=== PATIENT | female | born 1965 | race Caucasian/White ===

== ENCOUNTER → 2024-07-12 09:57 | Outpatient (REF) | payer BC, SELFPAY | LOC: HWWDC 09:57 | PROVIDERS: ATTENDING PHYSICIAN Family Medicine | DX: Z12.31 Encounter for screening mammogram for malignant neoplasm of breast (principal) | CPT/HCPCS: 77063; 77067 ==

== ENCOUNTER 2024-09-05 12:17 | Emergency (ER) | payer BC, SELFPAY ==
[2024-09-05 12:20] VITALS: BP 122/67
[2024-09-05] MEDS: MOTRIN 400 MG PO (13:15)
--- NOTE | 2024-09-05 14:47 | ED.GENMED ---
History of Present Illness
General
Chief Complaint: Musculo-Skeletal Complaint
Source: patient
Exam Limitations: none
Time Seen by Provider: 09/05/24 12:31
Nursing documentation reviewed up to this point in time: agreed with
History of Present Illness
History of Present Illness:
59-year-old female with no reported chronic medical issues presents for evaluation of left ankle injury. Patient missed a step walking out of a restaurant and suffered inversion injury of the left ankle. She denies any subsequent fall or other
injuries but says she heard a snap in her ankle and has had pain, swelling and weightbearing difficulty since. Denies any knee pain. Denies any other complaints.
Past History
Past History
ED Past Medical History: Hypercholesterolemia
ED Past Surgical History: None
Social History
Tobacco: Non-smoker
Personal:
Living: with family
Review of Systems
Review of Systems
All Other Systems: ROS reviewed and negative except as documented in HPI and ROS
Musculoskeletal: Reports other (Ankle injury)
Phy Exam
Physical Exam
Physical Exam:
General: Well appearing and non-toxic
HEENT: protecting airway
Neck: appears supple
CV: No evidence of cyanosis
Resp: No accessory muscle use
Abd: Non-distended
Extremities: Patient has swelling and bruising along the lateral malleolus on her left ankle and significant tenderness along the inferior aspect of the lateral malleolus; no tenderness of the medial malleolus on the left, no tenderness in the
midfoot, calcaneus, fifth metatarsal on the left; she has a strong left DP and PT pulse; no tenderness of the left knee and full range of motion; right lower extremity atraumatic
Neuro: Alert
Psych: Normal affect
Skin: Intact
Scores
Heart Failure Risk
Heart Failure Risk Score: Not Applicable
Heart Score for Chest Pain Patients
STEMI patient?: Not applicable
Withdrawal Assessment of Alcohol
Withdrawal Assessment Completed?: Not applicable
Course
Orders/Labs/Results
Orders:
Orders
09/05/24 12:18
Ankle, left 3 view CR [CR Ankle - Left Min 3 Views ] Urgent
Comment:
Reason For Exam: fall at a restaurant
09/05/24 13:09
Crutches-Treatment ONCE
Ortho Boot Left- Treatment ONCE
Short or tall?: Short
Ibuprofen [Motrin] 400 mg PO NOW STA
Vital Signs
Initial and Last Documented VS:
Initial Vital Signs
Temp Pulse Resp BP Pulse Ox
36.6 C 76 18 122/67 100
09/05/24 12:20 09/05/24 12:20 09/05/24 12:20 09/05/24 12:20 09/05/24 12:20
Last Documented Vital Signs
Temp Pulse Resp BP Pulse Ox
36.6 C 76 18 122/67 100
09/05/24 12:20 09/05/24 12:20 09/05/24 12:20 09/05/24 12:20 09/05/24 12:20
MDM/Problems Addressed
Differential Diagnosis Includes:
Ankle sprain, ankle fracture, dislocation less likely
MDM/Problems Addressed:
59-year-old female presents for evaluation of left ankle injury. No other injuries. Neurovascular intact. Pain and tenderness along the lateral malleolus. X-ray reviewed shows distal fibular fracture. No knee tenderness or pain to suggest more
proximal injury. Placed in Ortho boot, weight-bear as tolerated, crutches as needed. Referred to Ortho for follow-up. Discussed RICE, Tylenol Motrin for pain control. All questions answered.
*Radiology
Radiology exam reviewed: preliminary read by ED provider and radiology read reviewed
*Pulse Oximetry
Patient hypoxic: no
*Critical Care Note
Total Time (30-74mins, 75-104mins- exclusive of procedures): Not Applicable
Data Reviewed
Source: patient
ED Attending Note
-
Portions of this chart may have been created with voice recognition software.� Occasional wrong word or��sound alike� substitutions may have occurred due to the inherent limitations of voice recognition software.
Discharge Plan
Departure
Patient Disposition: Home (Routine Discharge)
Date of Disposition: 09/05/24
Time of Disposition: 13:20
Patient with high blood pressure during this ER visit?: No
Discharge Problem:
Fracture of distal end of fibula
Instructions: Ankle Fracture (DC)
Prescriptions:
No Action
ondansetron 4 MG tablet,disintegrating
4 mg PO BIDPRN PRN (Reason: nausea) Qty: 14 0RF
Referrals:
Daren Alberts MD [Family Provider] -
Nadir Fernandez DPM [Active] - Follow up in 5-7 days
Activity Restrictions/Additional Instructions:
Thank you for visiting the Emergency Department at [facility].
1. Please schedule a follow up appointment as directed. Call first thing tomorrow morning to make an appointment.
2. If indicated, please take your medications as instructed and indicated on discharge paperwork.
3. If any of your symptoms do not improve, or persist, or become more severe within 6-12 hours, please return to the emergency department for further care.
4. Please return to the emergency department if you develop a headache, neck pain/stiffness, fever greater than 100.4F, chest pain, shortness of breath, persistent nausea, vomiting, slurred speech, difficulty walking, numbness/tingling, weakness,
signs of infection or any other symptoms that are worrisome to you.
Please call [phone] if you have any questions.
Interventions
Interventions:
*ED COVID-19 Vaccine History Last Done: 09/05/24 12:20
*Nursing Disposition Last Done: 09/05/24 13:47
ED-Musculoskeletal Assessment Last Done: 09/05/24 13:28
Discharge Date and Time
Discharge Date/Time: 09/05/24 13:48
Print Language: GAMBIAN
== END 2024-09-05 13:48 | disposition home or self-care (01) ==
LOC: EMR 12:17
PROVIDERS: EMERGENCY PHYSICIAN Emergency Medicine; FAMILY PHYSICIAN Family Medicine
DX: S82.832A Other fracture of upper and lower end of left fibula, initial encounter for closed fracture (principal); S90.02XA Contusion of left ankle, initial encounter; W17.89XA Other fall from one level to another, initial encounter; Y93.01 Activity, walking, marching and hiking; Y92.511 Restaurant or cafe as the place of occurrence of the external cause; E78.00 Pure hypercholesterolemia, unspecified
CPT/HCPCS: 99283; 29515; 73610

== ENCOUNTER → 2024-09-13 16:16 | Outpatient (REF) | payer BC, SELFPAY | LOC: MRI 3T 16:16 | PROVIDERS: ATTENDING PHYSICIAN Family Medicine | DX: M54.12 Radiculopathy, cervical region (principal); G44.221 Chronic tension-type headache, intractable | CPT/HCPCS: 70553; A9575 ==